=== PATIENT | female | born 1960 | race Caucasian/White ===

== ENCOUNTER → 2017-06-09 | Day surgery (SDC) | payer OTHER ==
[2017-06-09] VITALS (9 sets, daily range): BP systolic 125–165; BP diastolic 80–101; PULSE 73–87; RESP 12–19; O2SAT 96–99
[~2017-06-09] VITALS: Ht 167.6 cm; Wt 70.0 kg
[~2017-06-09] MED LIST: CeFAZolin Inj 2 GM in IV Premix 1 EACH IV SCH; DIPH25CA6 PO; Dexamethasone 4 mg/mL Inj IVPUSH PRN; EPHEDrine Sulfate 50 mg/mL Inj IVPUSH PRN; HYDROcodone-APAP 7.5-325 mg Tablet PO PRN; HYDROmorphone 1 mg/mL Inj IVPUSH PRN; Lactated Ringer's 1,000 ML IV SCH; Lactated Ringer's 500 ML IV PRN; Lidocaine 1%-Epi 1:100,000 20 mL Inj INFILTRATE ONE; Marijuana; MetoCLOpramide 5 mg/mL 2 mL Inj IVPUSH PRN; NAPR500T5 PO; Ondansetron 2 mg/mL 2 mL Inj IVPUSH PRN; Phenylephrine 10,000 mCg/mL Inj IVPUSH PRN; Propofol 10,000 mCg/mL 20 mL Inj ONE; fentaNYL-PF 50 mCg/mL 2 mL Inj IVPUSH PRN; fentaNYL-PF 50 mCg/mL 2 mL Inj ONE
[2017-06-09] MEDS: Lactated Ringer's 1,000 ML IV SCH ×2 (07:47→08:37)
--- NOTE | 2017-06-09 09:57 | PCM.HPANE ---
Patient Data Date of Service: Jun 09, 2017 Surgeon Admitting Provider: Attending Provider:George Garcia DO Primary Care Physician:Red Guadarrama MD Other Provider:Saskia Parker Anesthesia Reason for Visit Left Carpal Tunnel Syndrome, Painful Hardware Ht/WT & BMI Height (Feet): 5 Height (Inches): 6 Weight (Kilograms): 70.0 Body Mass Index 24.00 Allergies Coded Allergies: bee venom protein (honey bee) (Verified Allergy, Severe, Anaphylaxis, 06/06) adhesive tape (Verified Adverse Reaction, Intermediate, Foam tape adhesive tears skin, 06/06/17) Past Anesthesia History Anesthesia History: Denies:: Abnormal Airway, Anesthesia Reactions, Difficult Intubation, Fam Anesthesia Reaction, Fam Malignant Hypertherm, Malignant Hyperthermia Diabetes History Hx Diabetes?: No MRSA MRSA: Yes (spider bite tailbone) Medications Hypertension Medication: No Home Meds Incl Beta Jero: No Reported Medications Naproxen 500 Mg Tablet.dr500 Mg PO BID PRN For Pain Ref 0 06/06/17 [Marijuana] No Conflict Check DIRECTED PRN For Pain 06/06/17 diphenhydrAMINE HCl (Benadryl)25 Mg [id number] Mg PO Q4 PRN For Itching Ref 0 06/06/17 History History of ENT Problems?: No HEENT History: Positive for:: TMJ (HX TMJ) Denies:: Abnormal Airway Cataracts Difficult Intubation Dysphagia Glaucoma Hearing Problem Sinus Problem Denture Type: None Teeth Condition: Missing Teeth Hx of Heart Problems?: No Cardiovascular History: Denies:: Abdominal Aortic Aneurism Cardiac Surgery Chest Pain Hx of Respiratory Problem?: Yes Respiratory History: Positive for:: Pneumonia (walking pneumonia 2014) Denies:: Tuberculosis Use of C-PAP Machine Use of Inhalers / NEBS Hx Neurologic Problems?: No Neurological History: Denies:: Alzheimer's Disease CVA Dementia Dizziness Headaches Parkinson's Disease Seizures TIA Hx of GI Problems?: No Hx of Problems?: No Genitourinary History: Denies:: HX of Hemodialysis Kidney Stones Urinary Tract Infection HX of Peritoneal Dialysis: No Female Hx: Positive for:: Problems with Breasts? (breast cancer tx with experimental procedure all is clear now) Hx Musculoskeletal Problems?: Yes (wrist hardware and pain) Psycho Social History: Positive for:: Anxiety Hx Depression Hx Surgeries?: Yes (Appy, breast surg, spider bite) Other History: Positive for:: Cancer (breast now resolved) Denies:: Endocrine Disease Thyroid Disease History Blood Transfusions: Positive for:: Accept Blood Products? Denies:: Blood Transfusions Hx Diabetes: No Hx Alcohol Use: NoHx Substance Use: Yes (smoke and eat Marijuana )Have You Smoked inLast 12 mo: YesApprox How Many Cigarettes/day: 6 Stop/Bang Treated for Sleep Apnea?: No Do You Have a CPAP Machine?: No S-Snoring: Do You Snore Loudly: No T-Tired: feel tired, fatigued: No O-Obsered: Observed not breath: No P-Blood Pressure: treated: No B- Body Mass Index > 35 kg/m2: No A- Age over 50: Yes N- Neck Large Circumference: No G- Gender Male: No JAS Total Score: 1 JAS Risk Assessment: Low Risk, <3 Yes Risk Assessment Category Category 1A: Patient has history of documented sleep apnea, and HAS NOT received any narcotic, sedative or anesthesia administration during this stay. Category 1B: Patient has history of documented sleep apnea, and HAS received any narcotic , sedative or anesthesia administration during this stay Category 2: Patient has SUSPECTED Obstructive Sleep Apnea, and HAS received any narcotic , sedative or anesthesia administration during this stay. Category 3: Patient has SUSPECTED Obstructive Sleep Apnea and HAS NOT received narcotic, sedative or anesthesia administration during this stay. Category 4: Outpatient in Procedural Areas with known sleep apnea or who screen positive for High Risk via the STOP/BANG questionnaire. Exam Exam Vital Signs Vital Signs Date Time Temp Pulse Resp B/P Pulse Ox O2 Delivery O2 Flow Rate FiO2 06/09/17 07:29 36.0 74 16 165/101 98 Room Air General Appearance: Alert, Oriented X3, Mild Distress HEENT/AIRWAY: MP 2, Other (poor dentition, no upper teeth) Lungs: Clear to Auscultation Heart: Exam Unremarkable Meds/Labs/Diagnostics Admission Meds Current Medications Lactated Ringer's (Lr) 1,000 ml @ 120 mls/hr Q8H20M IV Last administered on t 08:37; Start 06/09/17 at 05:00; Stop 06/09/17 at 13:19 Plan Impression Patient chart reviewed, patient interviewed and anesthestic plan with risks, benefits, and alternatives discussed, and informed consent obtained. NPO per Anesth. Guidelines: Yes ASA Physical Status: ASA2 Mod Systemic Disease Anesthetic Plan: GA, TIVA Bene/Risks/Altern/Consents: Yes HP Complete Prior to Induction: Yes Kam Aldrich MD Jun 09, 2017 09:57
--- NOTE | 2017-06-09 11:42 | PCM.ANEP1 ---
Post Anesthesia PACU Phase 1 Assessment Date of Service: Jun 09, 2017 Vital Signs Vital Signs Date Time Temp Pulse Resp B/P Pulse Ox O2 Delivery O2 Flow Rate FiO2 06/09/17 11:04 77 14 135/87 96 Room Air 06/09/17 10:59 75 17 143/93 98 Nasal Cannula 3 06/09/17 10:55 35.9 87 19 128/90 97 Nasal Cannula 3 06/09/17 10:45 73 12 129/86 99 Nasal Cannula 3 06/09/17 10:40 79 16 128/80 98 Nasal Cannula 3 06/09/17 10:35 78 15 125/80 97 Nasal Cannula 3 06/09/17 10:30 83 13 128/81 97 Nasal Cannula 3 06/09/17 10:24 36.0 76 17 128/86 96 Nasal Cannula 3 06/09/17 07:29 36.0 74 16 165/101 98 Room Air Anesthetic Administered: TIVA Level of Alertness: Sleepy, easy to arouse Pain: No Nausea or Vomiting: No CV Function & Hydration Stable: Yes Airway Device: Oxygen Delivery: Nasal Cannula Lungs: Clear to Auscultation PACU Phase 2 Assessment Patient Instructions Provided: N/A Kam Aldrich MD Jun 09, 2017 11:42
--- NOTE | 2017-06-09 22:28 | OP ---
[address] [address] OPERATIVE REPORT PATIENT: ELMA AYALA : 1960 MR#: [id number] ADMIT: 06/09/2017 JOB ID: [id number] DATE OF SURGERY: 06/09/2017 PREOPERATIVE DIAGNOSIS(ES): 1. Left carpal tunnel syndrome. 2. Left wrist painful hardware. POSTOPERATIVE DIAGNOSIS(ES): 1. Left carpal tunnel syndrome. 2. Left wrist painful hardware. PROCEDURE: 1. Left open carpal tunnel release. 2. Left deep hardware removal. SURGEON: George Garcia D.O. ANESTHESIA: General. HISTORY: The patient is a 57-year-old female that originally underwent open reduction, internal fixation of a left distal radius fracture performed almost a year prior at an outlying facility. She developed some posttraumatic arthritis as well as signs and symptoms for carpal tunnel syndrome and painful hardware. Her initial visit, she also had Dequervains and was treated with an injection. At subsequent followup, she continued to have pain overlying the volar distal radius hardware and failed conservative treatment for the carpal tunnel syndrome. 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 The patient is in agreement with the plan and had all questions answered. Consent was signed and placed in the chart. PROCEDURE IN DETAIL: The patient was brought to the operative suite and placed supine on the operating table. Surgical time-out was performed and everyone in the room was in agreement. After appropriate anesthesia was obtained, a left upper arm tourniquet was applied, and the left upper extremity was prepped and draped in sterile fashion. Left upper extremity was then exsanguinated and the tourniquet inflated to 250 mmHg. The patient's carpal tunnel was approached first. A 2 cm long skin incision was made in line with the radial aspect of the ring finger and the ulnar aspect of the palmaris longus. The incision was kept distal to the wrist crease and proximal to Li's cardinal line. Subcutaneous tissues were dissected, bipolar electrocautery utilized to maintain hemostasis throughout the procedure. The palmar fascia was identified 1st and incised longitudinally in line with the skin incision followed by exposure of the underlying transverse carpal ligament. Transverse carpal ligament was then released in its entirety to include the distal extent of the antebrachial fascia. Copious irrigation was performed followed by closure of skin with 5-0 nylon in simple interrupted fashion. The patient's previous incision along the volar radial aspect of the wrist was utilized for the hardware removal. A longitudinal incision was made. The flexor carpi radialis tendon identified and the sheath incised. The FCR tendon was retracted ulnarly revealing the underlying flexor pollicis longus which was also retracted ulnarly. There was significant fibrous tissue overlying the plate which was bluntly dissected off. The screws as well as the plate were well exposed and removed for a total of four shaft screws and six distal locking screws. The plate was easily removed. The plate holes and the edge of the plate with hypertrophic bone was debrided utilizing a rongeur until the volar aspect of the distal radius was left smooth without any jagged edges. Copious irrigation was then performed followed by closure of the skin with 4-0 nylon in a running fashion. The patient was then placed in a bulky dressing. ESTIMATED BLOOD LOSS: Less than 5 cc. COMPLICATIONS: None. DISPOSITION: The patient tolerated the procedure well. Anesthesia was reversed. The patient was transferred back to recovery. SPECIMENS: A [employer]hew volar distal radius plate with 10 total screws which were disposed of. POSTOPERATIVE PLAN: The patient will follow up in my office in two weeks for suture removal and to start initiating range of motion as well as scar massage and mobilization. SY
== END | disposition home or self-care (01) ==
LOC: SAS 06:58
PROVIDERS: ATTEND Orthopaedic Surgery
DX: G56.02 Carpal tunnel syndrome, left upper limb (principal); T84.84XA Pain due to internal orthopedic prosthetic devices, implants and grafts, initial encounter; M19.132 Post-traumatic osteoarthritis, left wrist; M65.4 Radial styloid tenosynovitis [de Quervain]; F12.90 Cannabis use, unspecified, uncomplicated
CPT/HCPCS: 20680; 64721; J2250; J2704; J3010; J7120